=== PATIENT | female | born 1965 | race Caucasian/White ===

== ENCOUNTER → 2020-01-24 | Outpatient (CLI) | payer BC ==
--- NOTE | 2020-01-30 15:36 | SLEEPCENT ---
DATE OF PROCEDURE: 01/24/2020 ORDERED BY: Consuelo Washington NP Nocturnal polysomnography was performed for the titration of pressure therapy in this patient with obstructive sleep apnea syndrome. Apnea-hypopnea index of 48. For testing a RespirPaperwoven Ally View full-face mask of small size was used; 4 cm of water pressure were applied to the circuit and the lights were extinguished. 7 hours and 12 minutes of data were reviewed. There were 379 minutes of sleep identified. Sleep latency was normal at 12.5 minutes. Rapid eye movement (REM) latency was delayed 372 minutes. Sleep architecture showed poor progression early in the study. There was 1 REM cycle late in the test. Overall sleep efficiency was 89.1%. The patient's electrocardiogram showed sinus rhythm with an average heart rate of 65 beats per minute. Electroencephalogram (EEG) showed reasonably normal waveforms for awake and sleep. Respiratory events were reasonably palliated with CPAP at a pressure of +11. There were some mild central events in REM. IMPRESSION: Obstructive sleep apnea syndrome (G47.33). RECOMMENDATIONS: Nightly use of pressure therapy at 11 cm of water.
== END ==
LOC: M SLEEP 20:00
PROVIDERS: ATTEND Nurse Practitioner Adult Health
DX: G47.33 Obstructive sleep apnea (adult) (pediatric) (principal)

== ENCOUNTER → 2020-04-12 | Outpatient (CLI) | payer OTHER ==
--- NOTE | 2020-04-12 18:29 | REPVR ---
PROCEDURE INFORMATION: Exam: MR Lumbar Spine Without Contrast. Exam date and time: 04/12/2020 4:10 PM Age: 55 years old Clinical indication: Low back pain; Patient HX: Lbp TECHNIQUE: Imaging protocol: Multiplanar magnetic resonance images of the lumbar spine without intravenous contrast. COMPARISON: No relevant prior studies available. FINDINGS: Vertebrae: . T1 weighted images demonstrate mottled decreased signal throughout the vertebrae, findings which can be seen in association with chronic anemia or other myeloproliferative abnormality. This should be correlated with clinical evaluation. Otherwise Spinal cord: Normal signal. No cord compression. L1-L2: Diffusely bulging annulus L1-L2 without evidence of a spinal stenosis. Mild bilateral facet joint arthropathy. No significant foraminal stenosis. L2-L3: Bulging annulus at L2-L3 without spinal stenosis. Bilateral facet joint arthropathy demonstrated. Mild bilateral foraminal narrowing. L3-L4: Bulging annulus L3-L4 without spinal stenosis. Moderate bilateral facet joint arthropathy. Moderate bilateral foraminal narrowing, right greater than left. L4-L5: There is a moderate posterolateral degenerative central spinal stenosis at L4-L5 secondary to diffuse annular bulging, thickened ligamentum flavum with marked facet joint arthropathy. L5-S1: Mild annular bulging L5-S1 without spinal stenosis. Moderate bilateral facet joint arthropathy. Sacrum/coccyx: Sacral cysts demonstrated. Soft tissues: Unremarkable. Other findings: unremarkable. IMPRESSION: 1. Mild degenerative changes in the lumbar spine with multilevel bulging annuli with a moderate degenerative spinal stenosis at L4-L5. Multilevel foraminal stenosis as described above. 2. Possible anemia or other myeloproliferative abnormality to be correlated clinically. Electronically signed by: Ezekiel Serrato On 04/12/2020 18:28:46 PM
== END ==
LOC: M RAD 15:05
PROVIDERS: ATTEND Student in an Organized Health Care Education/Training Program
DX: M51.26 Other intervertebral disc displacement, lumbar region (principal); M51.27 Other intervertebral disc displacement, lumbosacral region